=== PATIENT | female | born 1950 | race African-American/Black ===

== ENCOUNTER 2023-07-25 13:20 | Outpatient (AMB) | payer MEDICARE, SELFPAY ==
[2023-07-25 13:52] VITALS: BMI 24.4
--- NOTE | 2023-07-25 13:52 | A.OFFVIS_ITS ---
Intake VS Expanded 07/25/23 13:52 07/31/23 11:08 Height 5 ft 6 in 5 ft 6 in Weight 151 lb 0.266 oz 151 lb BMI 24.4 24.4 Intake Visit Reasons: DM/vm full unable to lvm HPI Nutrition Presentation Details Pt presents for MNT for T2DM. The Pt was referred by Citlaly TARIQ from [facility]. The Pt reports doing ok. Pt reports typically having 3 meals per day B: eggs with 2 wheat toast and tea , no sugar added L: salad with chicken or fast food meal dinner: rice/chicken, salad , water or juice snacks: pastries/ice cream Physical activity: daily life activities ETOH/Smoking: denies DM meds: Glipizide 10 mg twice a day , Jardiance 10 mg/d BG monitoring: has [employer] glucometer, did not bring meter to this appt A1c hx 14% on 05/2022, 13.8% on 05/02/23 food frequency fruits: 0-1/d non starchy vegetables: 2/daily dairy: 2-3/d starches > 15 serving/d protein: 6-10 oz/d fluids: water, tea , 14 oz/d KXO-Vkmojvv-Yd.Jeor Equation Height 5 ft 6 in Weight 151 lb Resting Metabolic Rate 1221.67 Calculated Activity Level Mild Activity Calories Needed to Maintain Weight 1679.80 Diagnosis Nutrition problem #1 excessive energy intake As related to (etiology) #1 diagnosis As evidenced by (sign/symptom) #1 food recall Monitoring/Goals Nutrition problem monitoring total PRO intake and total CHO intake Nutrition goal/outcome list 3 CHO foods Outcome progress verbalized understanding Learning/Education Readiness to learn good Stages of change contemplation Educational materials provided Yes (meal planning, nutrient densed snacks ) Most Recent Diabetes Results: No Data to Display Assessment & Plan Assessment & Plan (1) T2DM (type 2 diabetes mellitus): Code(s): E11.9 - Type 2 diabetes mellitus without complications Plan: wt: 69kg Est kcal needs as per MSJ: 1700 (40% carb, 30% protein/fat) Est fluid needs as per 30 ml/d: 2100 Est prot per day as per 1 g/kg bw: 69 Recommend fiber intake : 8-10 g per day and gradually increase to 25-28 g per day for women and 35-38 g for men or as tolerated Recommend sodium intake per day : less than 2000 mg Educated patient on: ( R = reviewed V = verbalizes understanding N/R = needs review N/A = not applicable REviewed relationship of food, medication, blood glucose level: R, V * Food sources of carbohydrate, adequate serving sizes and its role in various health conditions: R V * Differences between complex carbohydrates a simple carbohydrates, role of fiber in diet: R V * Differences between types of fats and role in diet (mono on saturated fat fat ty acids, saturated fatty acids, trans fats): R V R/V * Food sources of sodium in salt and healthy modifications for heart health in kidney health: R V R/V * Vitamins and minerals: R * Healthy plate method concept: R V * Physical activity: Benefits a precaution: R * Dietary prevention of Hyperglycemia: R Patient Instructions: Have 3 balanced meals per day following healthy plate method Choose yogurt as bedtime snack instead of ice cream/sherbet (work on reducing carbs as snack to less than 20 g and include a serving of protein ) - see list of snack ideas monitor your blood sugar fasting and 2 hours after a meal, (goals as per ADA : fasting blood sugar 80-130 and 2 hours after a meal 80-180 . Discuss your levels with your doctor for further assessment Coding Level of Care Code Nutr Indiv Intake (36945) Diagnoses T2DM (type 2 diabetes mellitus) E11.9 Time Spent (min) 40
[2023-07-31 11:08] VITALS: BMI 24.4
== END 2023-07-25 14:22 | disposition home or self-care (01) ==
PROVIDERS: PCP Family Medicine; Visit Provider Dietitian, Registered
DX: E11.9 Type 2 diabetes mellitus without complications (principal)

== ENCOUNTER → 2023-07-25 13:20 | Outpatient (BNVA) | payer MEDICARE, SELFPAY | PROVIDERS: PCP Family Medicine; Visit Provider Dietitian, Registered | DX: E11.9 Type 2 diabetes mellitus without complications (principal) | CPT/HCPCS: 97802 ==